=== PATIENT | female | born 1965 | race Caucasian/White ===

== ENCOUNTER 2017-01-05 10:20 | Emergency (ER) | payer MEDICAID ==
[~2017-01-05] VITALS: Ht 165.1 cm; Wt 85.5 kg
[2017-01-05 10:23] VITALS: Ht 165.1 cm; Wt 85.5 kg
[2017-01-05] MEDS ORDERED: CETI10CA PO (12:47)
[2017-01-05] MEDS ORDERED: PRED20TA PO (12:47)
[2017-01-05] MEDS ORDERED: BEN25 PO (12:47)
[2017-01-05] MEDS ORDERED: TR1B60 TOP (12:48)
--- NOTE | 2017-01-05 13:25 | ERD ---
ER Documentation Chief Complaint Date/Time DATE: 01/05/17 TIME: 13:21 Chief Complaint Complains of fever and rash x 3 days HPI Patient is a 51-year-old female with no past medical history who presents to the ED with a rash on her legs, arms and abdomen 3 days. She states that it is itchy but not painful. Denies drainage. Denies recent travel or change in hygiene products. 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 She also complains of a mild headache for the last week. She denies stating that this is the worst headache of her life. She states that the pain comes and goes. She denies blurry vision or weakness. She denies numbness or tingling. She has not seen her primary care regarding her blood pressure. She has taken Benadryl for her rash and used an clhr-tct-igpnsos cream. She states that it helped minimally. She denies fever or chills. Patient denies chest pain or difficulty breathing or shortness of breath. Patient does state that she has a lot of stress at work and states that her neck has been hurting from all of the unpacking. She states that she would also like a note for work. She has no other complaints. ROS All systems reviewed and are negative except as per history of present illness. Medications Home Meds Active Scripts Triamcinolone Acetonide (Triamcinolone Acetonide) 0.1% - 60 Ml Lotion, 1 APPLIC TOP BID, #2 BOTTLE Prov:NAYANA PRUITT-C 01/05/17 Cetirizine Hcl* (Zyrtec*) 10 Mg Capsule, 10 MG PO DAILY, #30 TAB.CHEW Prov:RACHELTANAYANA JOHNSON PA-C 01/05/17 Diphenhydramine Hcl* (Benadryl*) 25 Mg Cap, 25 MG PO Q6, #30 CAP Prov:RACHELTANAYANA JOHNSON PA-C 01/05/17 Prednisone* (Prednisone*) 20 Mg Tab, 40 MG PO DAILY for 4 Days, TAB Prov:RACHELTANAYANA JOHNSON PA-C 01/05/17 Allergies Allergies: Coded Allergies: No Known Drug Allergy (Verified Allergy, Unknown, NKDA, 06/21/07) PMhx/Soc Medical and Surgical Hx: pt denies Medical Hx, pt denies Surgical Hx History of Surgery: Yes () Anesthesia Reaction: No Hx Neurological Disorder: No Hx Respiratory Disorders: No Hx Cardiac Disorders: No Hx Psychiatric Problems: No Hx Miscellaneous Medical Probl: No Hx Alcohol Use: No Hx Substance Use: No Hx Tobacco Use: No Smoking Status: Never smoker Physical Exam Vitals Vital Signs Date Time Temp Pulse Resp B/P Pulse Ox O2 Delivery O2 Flow Rate FiO2 01/05/17 10:23 97.0 111 20 192/93 99 Physical Exam GENERAL: Well-developed, well-nourished female. Appears in no acute distress. HEAD: Normocephalic, atraumatic. EYES: Pupils are equally reactive bilaterally. EOMs grossly intact. No conjunctival erythema. ENT: Moist mucous membranes. No uvula deviation. No kissing tonsils. No exudates. NECK: Supple. No lymphadenopathy or thyromegaly. No meningismus. negative kernig. negative brudinski. LUNG: Clear to auscultation bilaterally. No rhonchi, wheezing, rales or coarse breath sounds. HEART: Regular rate and rhythm. No murmurs, rubs or gallops. Extremities: Equal pulses bilaterally. No peripheral clubbing, cyanosis or edema. No unilateral leg swelling. NEUROLOGIC: Alert and oriented. Moving all four extremities. 5/5 strength in all extremities. Normal speech. Steady gait. Cranial nerves II through XII intact. No ataxia. Negative Romberg test. SKIN: Normal color. Warm and dry. Capillary refill < 2 seconds. Erythematous blanchable rash scattered on arms, abdomen and legs. No signs of infection. No warmth. No drainage. No wheals. Procedures/MDM ER COURSE: I kept the patient and/or family informed of laboratory and diagnostic imaging results throughout the emergency room course. MEDICAL DECISION MAKING: This is a 51-year-old female with no past medical history who presents with mild headache and rash vital signs were reviewed. Patient is afebrile. Patient is not hypoxic. Patient has a pulse of 111 and a blood pressure of 182/93. Patient does not show signs of hypertensive urgency, emergency or endorgan damage. Low suspicion for intracranial hemorrhage, meningitis, intracranial mass, concussion, temporal arteritis, stroke, elevated intracranial pressure, seizure. I consulted with Dr. ron regarding this patient who stated that patient can be treated outpatient [place]. Her pulse of 111 is likely due to stress reaction. Patient does not show signs of respiratory distress. She has no angioedema, tongue or lip swelling and is speaking in full sentences. Patient's rash is of unknown etiology, likely allergic. Low suspicion for necrotizing fasciitis, SJS, toxic epidermal necrolysis, Kawasaki, erythema multiforme, gangrene, scarlet fever, meningococcemia, sepsis, anaphylaxis, sepsis, deep space infection, or foreign body. Low suspicion for ACS, PE, AAA, dissection, DVT DISCHARGE: At this time, patient is stable for discharge and outpatient management with no new complaints during the ER course. Patient was sent home with triamcinolone cream, Zyrtec, Benadryl and prednisone. I advised patient to follow-up with her primary care regarding her blood pressure and better management.. Patient will be discharged home with instructions to recheck for new or worsening symptoms such as fever, nausea, weakness, LOC and to follow up with primary care in the next 1-2 days. Patient was advised to return to the ER for any new or worsening symptoms. Plan was discussed and patient and/or family understands and agrees. Home instructions were given. Departure Diagnosis: Primary Impression: Rash Condition: Stable Patient Instructions: Self-Care for Skin Rashes, High Blood Pressure ( Hypertension) Ref[facility] Usted se parikh hecho un examen mdico de control que le indica que no est en rah condicin que requiera tratamiento urgente en el Departamento de Emergencia. Un estudio ms profundo y el tratamiento de morrison condicin pueden esperar sin ningn riesgo hasta que usted sea atendida/o en el consultorio de morrison mdico o rah cl mt. Es responsabilidad suya arreglar rah vasquez para el seguimiento del sammie. MANEJO DE CONDICIONES NO URGENTES EN EL FUTURO 1) Si usted tiene un mdico de atencin primaria: Usted debera llamar a morrison mdico de atencin primaria antes de venir al departamento de emergencia. Despus de las horas de consultorio, morrison doctor o morrison asociado/a est disponible por telfono. El mdico o enfermero de rivera en el servicio telefnico puede asesorarle por tabitha medio para atender el problema, o sammie contrario se puede programar rah vasquez. 2) Si usted no tiene un mdico de atencin primaria: Llame al mdico o clnica de referencia que aparece abajo sherman las horas de consultorio para hacer rah vasquez para que le vean. CLINICAS: [facility] [phone] [facility] [phone] [facility] [phone] [address] [facility] [place] [id number] [phone] [facility] [facility] [phone] [address] [facility] [address] [phone] [address] Additional Instructions: Llame al doctor MAANA y celeste rah VASQUEZ PARA DENTRO DE 1-2 DELGADO.Dgale a la secretaria que nosotros le instruimos hacer esta vasquez.Avise o llame si morrison condicin se empeora antes de la vasquez. Regresa aqui si peor o no mejor. SIGUE CON NAYANA DASH PA-C January 05, 2017 13:25
== END 2017-01-05 12:59 | disposition home or self-care (01) ==
LOC: FTE 10:20
DX: R21 Rash and other nonspecific skin eruption (principal)
CPT/HCPCS: 99284

== ENCOUNTER 2018-02-13 21:08 | Emergency (ER) | END 2018-02-14 | disposition home or self-care (01) ==